=== PATIENT | female | born 1930 | race Caucasian/White ===

== ENCOUNTER 2016-12-12 18:46 | Emergency (ER) | payer MEDICARE ==
[2016-12-12 18:53] VITALS: TEMP 97.7
--- NOTE | 2016-12-12 19:30 | ED ---
General Adult HPI - General Chief complaint: Fall Stated complaint: Fall Time Seen by Provider: 12/12/16 19:09 Source: patient, RN notes reviewed Mode of arrival: wheelchair Limitations: no limitations - History of Present Illness Initial comments: Patient 86-year-old female who presents emergency room today with chief complaint of fall occurred approximately an hour ago. Does admit that she was walking up steps in her left knee gave out on her. She states she fell down 3 steps. States she landed on the left leg. Does admit some pain locally to the left hip, left knee, left foot. Patient denies any other complaints or injuries. Denies any head injury or loss conscious. Patient denies any recent fever, chills, shortness of breath, chest pain, back pain, abdominal pain, nausea or vomiting, numbness or tingling, dysuria or hematuria, constipation or diarrhea, headaches or visual changes, or any other complaints. - Related Data Home Medications Medication Instructions Recorded Confirmed Aspirin EC [Ecotrin Low Dose] 81 mg PO DAILY 04/12/14 12/12/16 ALPRAZolam [Xanax] 0.25 mg PO TID PRN 11/07/14 12/12/16 traMADol HCl [Ultram] 50 mg PO Q12H PRN 10/11/15 12/12/16 Atenolol [Tenormin] 25 mg PO DAILY 12/12/16 12/12/16 Nitroglycerin Sl Tabs [Nitrostat] 0.4 mg SUBLINGUAL Q5M PRN 12/12/16 12/12/16 hydrOXYzine PAMOATE [Vistaril] 25 mg PO BID PRN 12/12/16 12/12/16 Allergies Allergy/AdvReac Type Severity Reaction Status Date / Time Iodinated Contrast Media - Allergy Unknown Verified 12/12/16 18:53 Oral and levofloxacin [From Levaquin] Allergy Rash/Hives Verified 12/12/16 18:53 Penicillins Allergy Unknown Verified 12/12/16 18:53 Sulfa (Sulfonamide Allergy Unknown Verified 12/12/16 18:53 Antibiotics) Review of Systems ROS Statement: Those systems with pertinent positive or pertinent negative responses have been documented in the HPI. ROS Other: All systems not noted in ROS Statement are negative. Past Medical History Past Medical History: Coronary Artery Disease (CAD), Chest Pain / Angina, Heart Failure, COPD, Hyperlipidemia, Hypertension, Myocardial Infarction (ID), Osteoarthritis (OA), Pneumonia Additional Past Medical History / Comment(s): acute on chronic diastolic CHF with EF 55-60%, moderate pulmonary HTN 2ndary to COPD, tracheobronchitis, pacer syndrome with gen change, bilateral pleural effusions 2ndary to CHF, granulation tissue around ilostomy. 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 Last Myocardial Infarction Date:: 2003 History of Any Multi-Drug Resistant Organisms: None Reported Past Surgical History: Adenoidectomy, Appendectomy, Bowel Resection, Cholecystectomy, Heart Catheterization, Hysterectomy, Pacemaker, Tonsillectomy Additional Past Surgical History / Comment(s): AORTIC VALVE REPALCEMENT, bowel resection with colostomy then reversal and ileostomy done, COCCYX BONE REMOVED, KIDNEY STONES REMOVED, peg tube insertion and removal, LT BREAST CYST REMOVED, X3 CYSTS ON HEAD REMOVED, L cataract removal. Past Anesthesia/Blood Transfusion Reactions: No Reported Reaction Additional Past Anesthesia/Blood Transfusion Reaction / Comment(s): Pt has received blood in the past without reaction. Type of Cardiac Device: Permanent Pacemaker Device Placement Date:: 2014 Past Psychological History: Anxiety, Depression Additional Psychological History / Comment(s): Pt has a sherwin who resides with her. Pt has her 's walker or cane if she needs but choses to hold onto furniture. She currently has [facility] nurse 2-3 times a week since her last hospital discharge. She no longer drives-her sherwin drives her places. She is independent with her ADLs. She manages her own medication. Smoking Status: Former smoker Past Alcohol Use History: None Reported Additional Past Alcohol Use History / Comment(s): Pt started smoking in 1945 and quit in 1979. She smoked 2 ppd for about 35 yrs. Past Drug Use History: None Reported - Past Family History Mother Family Medical History: Myocardial Infarction (ID) Additional Family Medical History / Comment(s): Mother of a ID at 51 yrs of age. Father Family Medical History: Myocardial Infarction (ID) Additional Family Medical History / Comment(s): Father of a ID at age 72 yrs. Sister(s) Family Medical History: Myocardial Infarction (ID) Additional Family Medical History / Comment(s): Sister also had a pacer. She is . Brother(s) Family Medical History: Cancer Additional Family Medical History / Comment(s): Brain cancer General Exam - General Exam Comments Initial Comments: General: The patient is awake and alert, in no distress, and does not appear acutely ill. Eye: Pupils are equal, round and reactive to light, extra-ocular movements are intact. No nystagmus. There is normal conjunctiva bilaterally. No signs of icterus. Ears, nose, mouth and throat: There are moist mucous membranes and no oral lesions. Neck: The neck is supple, there is no tenderness or JVD. Cardiovascular: There is a regular rate and rhythm. No murmur, rub or gallop is appreciated. Respiratory: Lungs are clear to auscultation, respirations are non-labored, breath sounds are equal. No wheezes, stridor, rales, or rhonch Musculoskeletal: Patient has normal appearance of the left leg no obvious deformity. Shows good range of motion. Patient does have mild tenderness over the lateral aspect of left hip. Mild tenderness over the anterior left knee. Mild tenderness down the distal metatarsals 1 through 3. Tender over the first and second digit. Sensations intact pulses equal bilaterally 2+. Strength 5/5 in all areas. Neurological: A&O x 3. CN II-XII intact, There are no obvious motor or sensory deficits. Coordination appears grossly intact. Speech is normal. Skin: Skin is warm and dry and no rashes or lesions are noted. Psychiatric: Cooperative, appropriate mood & affect, normal judgment. Limitations: no limitations Course Vital Signs 12/12/16 18:51 Temperature 97.7 F Pulse Rate 60 Respiratory 20 Rate Blood Pressure 197/85 O2 Sat by Pulse 97 Oximetry Medical Decision Making - Medical Decision Making Patient reexamined at this time shows no signs of distress. X-rays of the left hip, knee, foot reviewed and are unremarkable. No sign of fracture dislocation. Results were discussed with the patient. Patient discharged home. Advised follow-up family doctor return if any symptoms increase or worsen. Patient and family members at bedside state understanding and are in agreement Disposition Clinical Impression: Fall, Foot contusion Disposition: HOME SELF-CARE Condition: Good Instructions: Foot Contusion (ED) Referrals: Heath Lares DO [Primary Care Provider] - 1-2 days Herb Nixon MD [STAFF PHYSICIAN] - 1-2 days Time of Disposition: 20:01
--- NOTE | 2016-12-12 19:51 | XR ---
EXAMINATION TYPE: XR Hip LT and AP Pelvis DATE OF EXAM: 12/12/2016 7:47 PM COMPARISON: NONE HISTORY: Fall and left-sided pain TECHNIQUE: A single AP view of the pelvis is obtained. Two views of the left hip are obtained. FINDINGS: The pelvic ring is intact. Proximal left femur and hip joint are intact. There are multipl e surgical clips in the pelvis. I see no fracture. Sacroiliac joints are intact. IMPRESSION: No acute abnormality of the pelvis and left hip. No fracture seen.
--- NOTE | 2016-12-12 19:53 | XR ---
EXAMINATION TYPE: XR foot complete LT DATE OF EXAM: 12/12/2016 7:47 PM COMPARISON: NONE HISTORY: Fall and left-sided pain TECHNIQUE: 3 views FINDINGS: There is a plantar calcaneal spur. Metatarsals are intact. I see no fracture nor dislocatio n. There are no erosions. IMPRESSION: Calcaneal spurring. Otherwise negative left foot exam.
[2016-12-12 20:16] VITALS: BP 158/74; PULSE 77; RESP 16
--- NOTE | 2016-12-12 23:28 | XR ---
EXAMINATION TYPE: XR knee complete LT DATE OF EXAM: 12/12/2016 7:47 PM COMPARISON: NONE HISTORY: Fall and pain TECHNIQUE: 3 views FINDINGS: I see no fracture nor dislocation. Joint spaces are fairly normal for age. There is no sign of joint effusion. There is vascular calcification. IMPRESSION: Negative left knee exam.
== END 2016-12-12 20:16 | disposition home or self-care (01) ==
LOC: EC 18:46
DX: S90.32XA Contusion of left foot, initial encounter (principal); W10.9XXA Fall (on) (from) unspecified stairs and steps, initial encounter; M77.32 Calcaneal spur, left foot; M25.562 Pain in left knee; M25.552 Pain in left hip; I25.2 Old myocardial infarction; I10 Essential (primary) hypertension; F41.9 Anxiety disorder, unspecified; M19.90 Unspecified osteoarthritis, unspecified site; I27.2 Other secondary pulmonary hypertension; Z87.891 Personal history of nicotine dependence; Z86.73 Personal history of transient ischemic attack (TIA), and cerebral infarction without residual deficits; Z79.82 Long term (current) use of aspirin; Z88.0 Allergy status to penicillin; Z88.2 Allergy status to sulfonamides; Z88.1 Allergy status to other antibiotic agents; Z91.041 Radiographic dye allergy status
CPT/HCPCS: 73502; 99284

== ENCOUNTER 2017-11-23 10:04 | Emergency (ER) | payer MEDICARE ==
[2017-11-23 10:27] VITALS: PULSE 60
[2017-11-23 11:23] LABS: Basophils # (A) 0.1 k/uL (0-0.2); Basophils % (A) 1 %; Eosinophils # (A) 0.1 k/uL (0-0.7); Eosinophils % (A) 2 %; HCT 39.8 % (34.0-46.0); HGB 12.9 gm/dL (11.4-16.0); Lymphocytes # (A) 1.4 k/uL (1.0-4.8); Lymphocytes % (A) 21 %; MCH 28.5 pg (25.0-35.0); MCHC 32.4 g/dL (31.0-37.0); MCV 88.1 fL (80.0-100.0); Mean Platelet Volume 7.3; Monocytes # (A) 0.3 k/uL (0-1.0); Monocytes % (A) 5 %; Neutrophils # (A) 4.6 k/uL (1.3-7.7); Neutrophils % (A) 69 %; Platelet Count 145 k/uL (150-450); RBC 4.52 m/uL (3.80-5.40); RDW 13.1 % (11.5-15.5); WBC 6.7 k/uL (3.8-10.6)
[2017-11-23 11:34] LABS: Albumin 4.1 g/dL (3.5-5.0); Calcium 9.7 mg/dL (8.4-10.2); Potassium 5.3 mmol/L (3.5-5.1); Total Bilirubin 0.4 mg/dL (0.2-1.3); Total Protein 7.3 g/dL (6.3-8.2)
--- NOTE | 2017-11-23 11:49 | ED ---
General Adult HPI - General Chief complaint: Urogenital Stated complaint: URINE RETENTION, RECTAL PAIN, ILEOSTOMY PATIENT Time Seen by Provider: 11/23/17 10:32 Source: patient, family Mode of arrival: EMS Limitations: no limitations - History of Present Illness Initial comments: Physical knees 7-year-old female presents emergency department for inability to urinate. She states that last time she had normal amount of urination was last night. This morning she's felt like she's had to go however has been unable to get any urine out. She states that only dribbles come out. She has never had this problem before. She does admit to some suprapubic tenderness and some burning when she goes. No fevers or chills. No flank pain. She does have a history of kidney stones however this feels different. She does not have a urologist. She denies any nausea, vomiting, or diarrhea. No other acute complaints. - Related Data Home Medications Medication Instructions Recorded Confirmed Aspirin EC [Ecotrin Low Dose] 81 mg PO DAILY 04/12/14 11/23/17 ALPRAZolam [Xanax] 0.25 mg PO TID PRN 11/07/14 11/23/17 traMADol HCl [Ultram] 50 mg PO Q12H PRN 10/11/15 11/23/17 Atenolol [Tenormin] 25 mg PO DAILY 12/12/16 11/23/17 Nitroglycerin Sl Tabs [Nitrostat] 0.4 mg SUBLINGUAL Q5M PRN 12/12/16 11/23/17 amLODIPine BESYLATE [Norvasc] 5 mg PO BID 11/23/17 11/23/17 Allergies Allergy/AdvReac Type Severity Reaction Status Date / Time Iodinated Contrast- Oral and Allergy Anaphylaxis Verified 11/23/17 12:28 IV Dye Penicillins Allergy Unknown Verified 11/23/17 12:28 Childhood Sulfa (Sulfonamide Allergy Unknown Verified 11/23/17 12:28 Antibiotics) Childhood levofloxacin [From Levaquin] AdvReac Hallucinati Verified 11/23/17 12:28 ons Review of Systems ROS Statement: Those systems with pertinent positive or pertinent negative responses have been documented in the HPI. ROS Other: All systems not noted in ROS Statement are negative. Past Medical History Past Medical History: Coronary Artery Disease (CAD), Chest Pain / Angina, Heart Failure, COPD, Hyperlipidemia, Hypertension, Myocardial Infarction (NH), Osteoarthritis (OA), Pneumonia Additional Past Medical History / Comment(s): acute on chronic diastolic CHF with EF 55-60%, moderate pulmonary HTN 2ndary to COPD, tracheobronchitis, pacer syndrome with gen change, bilateral pleural effusions 2ndary to CHF, granulation tissue around ilostomy. 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 Last Myocardial Infarction Date:: 2003 History of Any Multi-Drug Resistant Organisms: None Reported Past Surgical History: Adenoidectomy, Appendectomy, Bowel Resection, Cholecystectomy, Heart Catheterization, Hysterectomy, Pacemaker, Tonsillectomy Additional Past Surgical History / Comment(s): AORTIC VALVE REPALCEMENT, bowel resection with colostomy then reversal and ileostomy done, COCCYX BONE REMOVED, KIDNEY STONES REMOVED, peg tube insertion and removal, LT BREAST CYST REMOVED, X3 CYSTS ON HEAD REMOVED, L cataract removal. Past Anesthesia/Blood Transfusion Reactions: No Reported Reaction Additional Past Anesthesia/Blood Transfusion Reaction / Comment(s): Pt has received blood in the past without reaction. Type of Cardiac Device: Permanent Pacemaker Device Placement Date:: 2014 Past Psychological History: Anxiety, Depression Smoking Status: Former smoker Past Alcohol Use History: None Reported Past Drug Use History: None Reported - Past Family History Mother Family Medical History: Myocardial Infarction (NH) Additional Family Medical History / Comment(s): Mother of a NH at 51 yrs of age. Father Family Medical History: Myocardial Infarction (NH) Additional Family Medical History / Comment(s): Father of a NH at age 72 yrs. Sister(s) Family Medical History: Myocardial Infarction (NH) Additional Family Medical History / Comment(s): Sister also had a pacer. She is . Brother(s) Family Medical History: Cancer Additional Family Medical History / Comment(s): Brain cancer General Exam - General Exam Comments Initial Comments: Constitutional: Awake alert Appears comfortable Head: Normocephalic atraumatic Eyes: no conjunctival injection No scleral icterus EOMI Neck: No JVD Supple Heart: Regular rate rhythm normal S1-S2 no murmurs Lungs: Clear to auscultation bilaterally No wheezing No rales Abdomen: Soft nondistended suprapubic tenderness, there is an ostomy present Extremities: Non edematous DP pulses intact Radial pulses intact Neuro: A&Ox3 No focal neurologic deficits Psych: Appropriate mood and affect Limitations: no limitations Course Vital Signs 11/23/17 10:24 Temperature 98.4 F Pulse Rate 60 Respiratory 16 Rate Blood Pressure 191/98 O2 Sat by Pulse 98 Oximetry Medical Decision Making - Medical Decision Making Is an 87-year-old female who presents emergency department for difficulty with urinating. The patient had 117 mL's in her bladder after bladder scan. She was able to urinate fully and feels improved now. He did have some hematuria. Question whether she may have passed a kidney stone however she has absolutely no flank pain or abdominal pain at all at this point. Labwork was reviewed and unremarkable. At this time I felt the patient can go home. I did give her Dr. Hughes as follow-up just in case her symptoms return. Otherwise she can follow- up the primary doctor. Needs return if she has recurring urinary retention, dysuria, or develops flank pain or abdominal pain. All questions were answered. - Lab Data Result diagrams: 11/23/17 11:08 11/23/17 11:08 Lab Results 11/23/17 11/23/17 11/23/17 Range/Units 11:08 11:08 12:00 WBC 6.7 (3.8-10.6) k/uL RBC 4.52 (3.80-5.40) m/uL Hgb 12.9 (11.4-16.0) gm/dL Hct 39.8 (34.0-46.0) % MCV 88.1 (80.0-100.0) fL MCH 28.5 (25.0-35.0) pg MCHC 32.4 (31.0-37.0) g/dL RDW 13.1 (11.5-15.5) % Plt Count 145 L (150-450) k/uL Neutrophils % 69 % Lymphocytes % 21 % Monocytes % 5 % Eosinophils % 2 % Basophils % 1 % Neutrophils # 4.6 (1.3-7.7) k/uL Lymphocytes # 1.4 (1.0-4.8) k/uL Monocytes # 0.3 (0-1.0) k/uL Eosinophils # 0.1 (0-0.7) k/uL Basophils # 0.1 (0-0.2) k/uL Sodium 140 (137-145) mmol/L Potassium 5.3 H (3.5-5.1) mmol/L Chloride 104 (98-107) mmol/L Carbon Dioxide 27 (22-30) mmol/L Anion Gap 9 mmol/L BUN 15 (7-17) mg/dL Creatinine 1.07 H (0.52-1.04) mg/dL Est GFR (MDRD) Af Amer 59 (>60 ml/min/1.73 sqM) Est GFR (MDRD) Non-Af 49 (>60 ml/min/1.73 sqM) Glucose 91 (74-99) mg/dL Calcium 9.7 (8.4-10.2) mg/dL Total Bilirubin 0.4 (0.2-1.3) mg/dL AST 22 (14-36) U/L ALT 22 (9-52) U/L Alkaline Phosphatase 82 (38-126) U/L Total Protein 7.3 (6.3-8.2) g/dL Albumin 4.1 (3.5-5.0) g/dL Urine Color Light Yellow Urine Appearance Clear (Clear) Urine pH 5.0 (5.0-8.0) Ur Specific [place] 1.004 (1.001-1.035) Urine Protein Negative (Negative) Urine Glucose (UA) Negative (Negative) Urine Ketones Negative (Negative) Urine Blood Moderate H (Negative) Urine Nitrite Negative (Negative) Urine Bilirubin Negative (Negative) Urine Urobilinogen <2.0 (<2.0) mg/dL Ur Leukocyte Esterase Negative (Negative) Urine RBC 147 H (0-5) /hpf Urine Mucus Rare H (None) /hpf Disposition Clinical Impression: Difficulty urinating Disposition: HOME SELF-CARE Condition: Stable Instructions: Hematuria (ED) Referrals: Heath Lares DO [Primary Care Provider] - 1-2 days Paulino Camejo MD [STAFF PHYSICIAN] - 1-2 days
[2017-11-23 12:12] LABS: Appearance,Urine Clear (Clear); Bilirubin,Urine Negative (Negative); Blood,Urine Moderate (Negative); Color,Urine Light Yellow; Glucose,Urine (UA) Negative (Negative); Ketones,Urine Negative (Negative); Leukocyte Esterase,Urine Negative (Negative); Mucus,Urine Rare /hpf; Nitrite,Urine Negative (Negative); Protein,Urine Negative (Negative); RBC,Urine 147 /hpf (0-5); Specific Gravity,Urine 1.004 (1.001-1.035); Urobilinogen,Urine <2.0 mg/dL (<2.0)
[2017-11-23 13:46] VITALS: BP 189/83; RESP 18; TEMP 97.3
== END 2017-11-23 13:30 | disposition home or self-care (01) ==
LOC: EC 10:04
DX: R39.198 Other difficulties with micturition (principal); R31.9 Hematuria, unspecified; I11.0 Hypertensive heart disease with heart failure; I50.31 Acute diastolic (congestive) heart failure; I50.32 Chronic diastolic (congestive) heart failure; I25.10 Atherosclerotic heart disease of native coronary artery without angina pectoris; M19.90 Unspecified osteoarthritis, unspecified site; F41.9 Anxiety disorder, unspecified; I25.2 Old myocardial infarction; Z87.891 Personal history of nicotine dependence; Z79.82 Long term (current) use of aspirin; Z79.899 Other long term (current) drug therapy; Z88.0 Allergy status to penicillin; Z88.1 Allergy status to other antibiotic agents; Z88.2 Allergy status to sulfonamides; Z91.041 Radiographic dye allergy status; Z86.79 Personal history of other diseases of the circulatory system; Z93.2 Ileostomy status
CPT/HCPCS: 36415; 51798; 80053; 81001; 85025; 99284